=== PATIENT | female | born 1955 | race Caucasian/White ===

== ENCOUNTER 2017-01-04 07:46 | Day surgery (SDC) | payer BC ==
[~2017-01-04] VITALS: Ht 154.9 cm; Wt 75.0 kg
[2017-01-04] VITALS (7 sets, daily range): BP systolic 118–130; BP diastolic 69–92; PULSE 66–94; RESP 16–20; TEMP 97.6; O2SAT 92–97
[2017-01-04] MEDS ORDERED: LEVO.075 PO (08:12)
[2017-01-04] MEDS ORDERED: METO25TA3 PO (08:12)
[2017-01-04] MEDS ORDERED: LOVA40TA PO (08:12)
[2017-01-04] MEDS ORDERED: AMBI5TAB PO (08:12)
[2017-01-04] MEDS ORDERED: CHOL1CAP6 PO (08:12)
[2017-01-04] MEDS ORDERED: OMEP20TA PO (08:12)
[2017-01-04] MEDS ORDERED: ALPR.25 PO (08:12)
[2017-01-04] MEDS ORDERED: SODIUM CHLOR 0.9% 1000 ML IV SCH (08:15)
[2017-01-04 08:44] LABS: AUTOMATED NEUTROPHIL # 6.5 TH/MM3 (1.8-7.7); BASOPHIL # 0.1 TH/MM3 (0-0.2); BASOPHIL % 1.1 % (0.0-2.0); EOSINOPHIL # 0.1 TH/MM3 (0-0.4); EOSINOPHIL % 1.5 % (0.0-4.0); HEMATOCRIT 43.5 % (35.0-46.0); HEMO FLAGS DIFF FINAL; LYMPH % 25.1 % (9.0-44.0); LYMPHOCYTE # 2.5 TH/MM3 (1.0-4.8); MEAN CELL VOLUME 81.9 FL (80.0-100.0); MEAN CORPUSCULAR HEMOGLOBIN 26.8 PG (27.0-34.0); MEAN CORPUSCULAR HGB CONC 32.7 % (32.0-36.0); MONO % 5.8 % (0.0-8.0); NEUT % 66.5 % (16.0-70.0); PLATELET COUNT 117 TH/MM3 (150-450); RED BLOOD COUNT 5.31 MIL/MM3 (4.00-5.30); RED CELL DISTRIBUTION WIDTH 15.4 % (11.6-17.2); WHITE BLOOD COUNT 9.8 TH/MM3 (4.0-11.0)
[2017-01-04 08:48] LABS: INTERNATIONAL NORMALIZED RATIO 0.9 RATIO; PROTHROMBIN TIME - PATIENT 9.7 SEC (9.8-11.6)
[2017-01-04 08:53] LABS: APTT (PATIENT) 22.4 SEC (24.3-30.1)
[2017-01-04] MEDS ORDERED: LIDOCAINE HCL 1% 20 ML VIAL ONE (10:58)
[2017-01-04] MEDS ORDERED: MIDAZOLAM HCL 2 MG/2 ML VIAL ONE (11:12)
--- NOTE | 2017-01-04 11:58 | PD.RAD ---
Post CT Procedure Prog Note Pre Procedure Diagnosis: (1) Idiopathic thrombocytopenia purpura Post Procedure Diagnosis: (1) Idiopathic thrombocytopenia purpura Procedure Date: Jan 04, 2017 Supervising Radiologist: Sven Jeffers Estimated blood loss: minimal Anesthesia: Conscious Sedation Plan of Activity Patient to Unit: [facility] Patient Condition: Good See PACS Report for procedural detail/treatment Biopsy Imaging Guidance: CT Biopsy Procedure: Bone Marrow Site: posterior iliac bone Specimen: Core Biopsy Plan to [facility] for monitoring then discharge in 2 hours. Sven Jeffers MD Jan 04, 2017 11:58
[2017-01-04 12:20] LABS: BONE MARROW PROCESSING COMPLETE; IRON STAIN DONE; JENNER GIEMSA STAIN DONE
--- NOTE | 2017-01-04 14:05 | RADRPT ---
EXAM DATE/TIME: 01/04/2017 11:18 [place] COMPARISON: No previous studies available for comparison. INDICATIONS : Thrombocytopenia. ITP SEDATION TIME: 30 minutes BIOPSY SITE: Left MEDICATION(S): 1.) 4 mg midazolam (Versed) IV 2.) 200 mcg fentanyl (Sublimaze) IV DEVICE(S): 1.) 11 gauge Bone marrow biopsy needle MEDICAL HISTORY : Bladder cancer. SURGICAL HISTORY : None. ENCOUNTER: Initial ACUITY: 1 day PAIN SCORE: 0/10 LOCATION: Left pelvis A total of one core specimen(s) were obtained and sent to the laboratory for pathologic evaluation. PROCEDURE: 1. CT guided bone marrow biopsy. 2. Conscious sedation with continuous EKG and oximetry monitoring. 3. EKG and oximetry remained stable throughout the procedure. Prior to the procedure informed consent was obtained. Any appropriate prior imaging studies were rev iewed. Using automated exposure control and adjustment of the mA and/or kV according to patient size , radiation dose was kept as low as reasonably achievable to obtain optimal diagnostic quality images . DICOM format image data is available electronically for review and comparison. The site was prepped in a sterile fashion. Full sterile technique was used, including cap, mask, dennis rile gloves and gown and a large sterile sheet. Hand hygiene and 2% chlorhexidine and/or betadine/al cohol prep was utilized per protocol for cutaneous antisepsis. The skin and subcutaneous tissues wer e infiltrated with local anesthetic solution. With CT guidance the left posterior iliac bone was localized. Biopsy was performed using the prescrib ed needle as above. Following biopsy marrow aspiration was performed with repeat puncture. Adequate hemostasis was obtained with compression at the puncture site. Conscious sedation was performed with the prescribed dosages and duration as above in the presence of an independent trained radiology nurse to assist in the monitoring of the patient. EKG and oximetry remained stable throughout the procedure. The patient tolerated the procedure well and there were no complications. The patient was sent to Radiology Outpatient Unit in stable condition. CONCLUSION: 1. Uncomplicated CT guided bone marrow aspirate. 2. Uncomplicated CT guided bone marrow biopsy. Sven Jeffers MD on January 04, 2017 at 13:06 Board Certified Radiologist. This report was verified electronically.
== END 2017-01-04 14:10 | disposition home or self-care (01) ==
LOC: HRAD 07:46 → HRIP 07:49 → HRAD 14:10
PROVIDERS: ATTEND Internal Medicine Hematology & Oncology
DX: D69.3 Immune thrombocytopenic purpura (principal); I10 Essential (primary) hypertension; Z85.51 Personal history of malignant neoplasm of bladder
CPT/HCPCS: 38221; 77012; 85025; 85097; 85610; 85730; 88184; 88185; 88237; 88264; 88280; 88305; 88311; 88313; 99152; 99153; C1830; G0364; J2250; J3010; J7030

== ENCOUNTER 2017-03-15 11:20 | Observation (INO) | payer BC ==
[~2017-03-15] VITALS: Ht 153.7 cm; Wt 75.4 kg
[~2017-03-15 11:20] MED LIST: ALPR.25 PO; AMBI5TAB PO; BUPIVACAINE/EPINEPHRINE 0.25% PF 30 ML VIAL ONE; D31000CA3 PO; HYDR25TA5 PO; LEVO.075 PO; LOVA40TA PO; METO25TA3 PO; OMEP20TA93 PO
[2017-03-15] MEDS ORDERED: POVIDONE IODINE 5% (ANTISEPSIS KIT) 4 APPLICATIONS EACH NARE PRN (11:45)
[2017-03-15] MEDS ORDERED: METOPROLOL TARTRATE 25 MG TAB PO PRN (11:45)
[2017-03-15] MEDS ORDERED: LACTATED RINGER'S 1000 ML IV PRN (11:45)
[2017-03-15] MEDS ORDERED: SODIUM CHLORID 0.9% 500 ML IV PRN (11:45)
[2017-03-15] MEDS ORDERED: CHLORHEXIDINE GLUCONATE 2 % 1 PACK (2 CLOTHS) TOPICAL PRN (11:45)
[2017-03-15] MEDS ORDERED: VANCOMYCIN 1,000 MG/NS 250 ML IV SCH ×2 (11:45)
[2017-03-15] MEDS ORDERED: ONDANSETRON HCL 4 MG/2 ML VIAL IV ONE (12:00)
[2017-03-15] MEDS ORDERED: PROPOFOL 200 MG/20 ML AMP IV ONE (12:00)
[2017-03-15] MEDS ORDERED: LIDOCAINE HCL 1% PF 5 ML SYRINGE OTHER ONE (12:00)
[2017-03-15] MEDS ORDERED: NORMOSOL R INJ 1,000 ML IV ONE (12:00)
[2017-03-15] MEDS ORDERED: ROCURONIUM INJ 50 MG/5 ML SYRINGE IV PUSH ONE (12:00)
[2017-03-15] MEDS ORDERED: DEXAMETHASONE SOD PHOS 4 MG/ML VIAL IV ONE (12:00)
[2017-03-15 12:18] LABS: AUTOMATED NEUTROPHIL # 4.4 TH/MM3 (1.8-7.7); BASOPHIL # 0.1 TH/MM3 (0-0.2); BASOPHIL % 1.3 % (0.0-2.0); EOSINOPHIL # 0.1 TH/MM3 (0-0.4); EOSINOPHIL % 1.5 % (0.0-4.0); HEMATOCRIT 42.1 % (35.0-46.0); HEMOGLOBIN 13.8 GM/DL (11.6-15.3); LYMPH % 33.4 % (9.0-44.0); LYMPHOCYTE # 2.7 TH/MM3 (1.0-4.8); MEAN CELL VOLUME 81.1 FL (80.0-100.0); MEAN CORPUSCULAR HEMOGLOBIN 26.6 PG (27.0-34.0); MEAN CORPUSCULAR HGB CONC 32.9 % (32.0-36.0); MEAN PLATELET VOLUME 12.8 FL (7.0-11.0); MONO % 9.3 % (0.0-8.0); MONOCYTE # 0.7 TH/MM3 (0-0.9); NEUT % 54.5 % (16.0-70.0); RED CELL DISTRIBUTION WIDTH 15.1 % (11.6-17.2)
[2017-03-15 13:10] LABS: OVALOCYTES 1+ (NORMAL)
[2017-03-15] MEDS ORDERED: ACETAMINOPHEN 1000 MG/100 ML 100 ML IV ONE (13:40)
[2017-03-15] MEDS ORDERED: SUGAMMADEX SODIUM 200 MG/2 ML VIAL IV PUSH ONE (13:40)
[2017-03-15] MEDS ORDERED: DO NOT ADM ANY ANTICOAGULANT DRUGS PRN (14:17)
[2017-03-15] MEDS ORDERED: MORPHINE SULFATE 4 MG/ML INJ ONE (14:25)
--- NOTE | 2017-03-15 14:29 | PD.OP ---
Operative Report Date of Surgery: Mar 15, 2017 Preoperative Diagnosis: ITP Postoperative Diagnosis: same Procedure: laparoscopic splenectomy Anesthesia: general Surgeon: Dalton Velasquez Paid Search Marketing Strategist(s): Ran Kaminski Operation and Findings: spleen to pathology. EBL 250 ml. Dalton Velasquez MD Mar 15, 2017 14:29
[2017-03-15] MEDS ORDERED: *morphine SULFATE 4 MG/ML PERIprocedure ONLY ONE (14:30)
[2017-03-15] MEDS ORDERED: ACETAMINOPHEN/HYDROcodone 325 MG/5 MG TAB PO PRN (14:30)
[2017-03-15] MEDS ORDERED: Post-op Orders (for Pharmacy) XX ONE (14:30)
[2017-03-15] MEDS ORDERED: MORPHINE SULFATE 2 MG/ML INJ IV PUSH PRN (14:45)
[2017-03-15] MEDS ORDERED: *morphine SULFATE 10 MG/ML PERIprocedure ONLY ONE (15:00)
[2017-03-15] MEDS: LACTATED RINGER'S 1000 ML INJ 1,000 ML IV SCH ×2 (15:06→23:24)
[2017-03-15 15:54] LABS: AUTOMATED NEUTROPHIL # 13.9 TH/MM3 (1.8-7.7); BASOPHIL # 0.1 TH/MM3 (0-0.2); BASOPHIL % 0.6 % (0.0-2.0); EOSINOPHIL # 0.1 TH/MM3 (0-0.4); EOSINOPHIL % 0.6 % (0.0-4.0); HEMATOCRIT 37.2 % (35.0-46.0); HEMOGLOBIN 11.8 GM/DL (11.6-15.3); LYMPH % 12.5 % (9.0-44.0); LYMPHOCYTE # 2.1 TH/MM3 (1.0-4.8); MEAN CELL VOLUME 82.1 FL (80.0-100.0); MEAN CORPUSCULAR HEMOGLOBIN 26.1 PG (27.0-34.0); MEAN CORPUSCULAR HGB CONC 31.8 % (32.0-36.0); MEAN PLATELET VOLUME 14.2 FL (7.0-11.0); MONO % 3.2 % (0.0-8.0); MONOCYTE # 0.5 TH/MM3 (0-0.9); NEUT % 83.1 % (16.0-70.0); PLATELET COUNT 28 TH/MM3 (150-450); RED BLOOD COUNT 4.52 MIL/MM3 (4.00-5.30); RED CELL DISTRIBUTION WIDTH 14.7 % (11.6-17.2); WHITE BLOOD COUNT 16.7 TH/MM3 (4.0-11.0)
[2017-03-15 16:00] VITALS: BP 141/77; PULSE 82; RESP 17; TEMP 97.9; O2SAT 96
[2017-03-15 19:08] VITALS: O2SAT 96
[2017-03-15 20:00] VITALS: BP 88/56; PULSE 87; RESP 20; TEMP 95.7; O2SAT 98
[2017-03-15] MEDS: ACETAMINOPHEN/HYDROcodone 325 MG/5 MG TAB PO PRN (23:24)
[2017-03-16] VITALS: BP 106/68; PULSE 88; RESP 20; TEMP 95.4; O2SAT 99
--- NOTE | 2017-03-16 06:59 | MP ---
cc: NATALIA CLARK M.D. DATE OF SURGERY 03/15/2017 PREOPERATIVE DIAGNOSIS Immune thrombocytopenic purpura. POSTOPERATIVE DIAGNOSIS Immune thrombocytopenic purpura. PROCEDURE Laparoscopic splenectomy SURGEON Dr. Natalia Clark ELECT[employer]IC [employer]OR REPAIRER SURGEON Dr. Ran Kaminski ANESTHESIA General INDICATIONS This is a pleasant 61-year-old patient of Dr. Louis Pantoja who has been treated for ITP with multiple medications. She had some initial good response, but they did no response did not last long. She was offered long-term medical therapy, but declined due to potential side effects. She was desirous of splenectomy understanding about an 80% chance of long lasting improvement in her platelet count with laparoscopic splenectomy. INTRAOPERATIVE FINDINGS Normal size spleen removed and sent to pathology. No evidence of accessory splenic tissue. ESTIMATED BLOOD LOSS 250 mL DESCRIPTION OF PROCEDURE IN DETAIL The patient identified as Sofi Merino, taken to the operating room, placed in the supine position. Sequential compression devices were placed on bilateral lower extremities. Following induction of adequate general endotracheal anesthesia, the patient's abdomen was prepped and draped in the usual sterile fashion with Betadine. A time-out procedure was performed. Following completion of the time-out procedure to everyone's satisfaction within the room, local anesthetic was placed at each incision site. An incision about 2-4 cm above the umbilicus above the abdominal crease was carried out with a scalpel and dissection continued posteriorly to the level of the midline fascia. The fascia was incised with a scalpel and entry into the peritoneal cavity was facilitated with the surgeon's finger. The applied medical balloon Watt trocar was placed in the peritoneal cavity, its balloon inflated to CO2 insufflation to a level of 15 mmHg ensued. The patient had a folded blanket beneath the left upper quadrant to facilitate appropriate positioning, but she was also placed in reverse Trendelenburg and turned slightly to the right. Two upper abdominal midline 5 mm trocars were placed in the peritoneal cavity under direct laparoscopic view after incision in the skin with a scalpel. A left upper quadrant 10/12 trocar was placed in the peritoneal cavity under direct laparoscopic view after incision in the skin with a scalpel. The spleen was immediately identified. Short gastric vessels were taken down with a harmonic scalpel to the superior pole of the spleen. The splenocolic attachments were taken down with a harmonic scalpel. The splenic attachments to the diaphragm posteriorly and superiorly were then taken down. As we dissected up from the inferior pole vessels using the harmonic scalpel, a small amount of bleeding occurred which was controlled initially with a grasper and then with the laparoscopic vascular stapling device. A small amount of ooze was further controlled with a 0-PDS Endoloop. The ruzi flex liver retractor was then placed around the spleen retracting it anteriorly which allowed further isolation of the splenic hilum using the harmonic scalpel. The splenic hilum was then divided with the laparoscopic vascular stapling device. There was a small amount of ooze at the center of the staple line which was controlled with a 0 Vicryl Endoloop. The right upper quadrant was then irrigated copiously with saline. All bloody drainage was suctioned out. A detailed examination demonstrated no further evidence of ooze or bleed at the staple lines or in the left upper quadrant where the avascular attachments had been divided. Greater curvature of the stomach was evaluated. No evidence of bleeding from the short gastric vessels either. The left upper quadrant trocar incision site was closed with laparoscopic passage of a 0 Vicryl suture and an additional 0 Vicryl in the anterior fascia. The remaining trocars were removed under direct visualization. There was no loss of bleeding from trocar sites. The abdomen was actively desufflated through the supraumbilical port. The supraumbilical fascial incision closed with multiple interrupted 0 Vicryl sutures. Port site skin incisions were infiltrated with remaining local anesthetic and incisions closed with interrupted 4-0 Monocryl subcuticular sutures. Dressings were applied with Mastisol and half inch brown Steri-Strips. The patient tolerated the procedure without apparent complication. Sponge, needle and instrument counts were correct at the end of the case. MD JESUS Rios/HERBERT /2:11 PM /6:26 AM
[2017-03-16 08:00] VITALS: BP 111/60; PULSE 103; RESP 16; TEMP 97.7; O2SAT 93
[2017-03-16] MEDS: ACETAMINOPHEN/HYDROcodone 325 MG/5 MG TAB PO PRN ×2 (10:22→14:33)
[2017-03-16] MEDS ORDERED: ALPRAZolam 0.25 MG TAB PO PRN (11:45)
[2017-03-16] MEDS ORDERED: ZOLPIDEM TARTRATE 5 MG TAB PO PRN (11:45)
[2017-03-16 12:00] VITALS: BP 113/61; PULSE 106; RESP 16; TEMP 97.9; O2SAT 93
[2017-03-16] MEDS ORDERED: METOPROLOL TARTRATE 25 MG TAB PO SCH (13:00)
[2017-03-16] MEDS ORDERED: LEVOTHYROXINE SODIUM 75 MCG TAB PO SCH (13:00)
[2017-03-16] MEDS ORDERED: PRAVASTATIN SOD 40 MG TAB PO SCH (13:00)
[2017-03-16] MEDS ORDERED: HYDROCHLOROTHIAZIDE 25 MG TAB PO SCH (13:00)
[2017-03-16] MEDS ORDERED: PANTOPRAZOLE SOD 40 MG DELAYED RELEASE TAB PO SCH (13:00)
[2017-03-16] MEDS ORDERED: CHOLECALCIFEROL (VIT D3) 1000 UNIT TAB PO SCH (13:00)
[2017-03-16] MEDS ORDERED: HYDR-3516 PO (14:19)
--- NOTE | 2017-03-16 15:33 | HHI.DS ---
Discharge Summary Admission Date Mar 15, 2017 at 14:34 Discharge Date: Mar 16, 2017 Admitting Diagnosis Brief History 61 year old female POD1 laparoscopic splenectomy for ITP. CBC/BMP: 03/15/17 1441 Significant Findings Laboratory Tests Test 03/15/17 11:55 03/15/17 14:41 Mean Corpuscular Hemoglobin 26.6 PG (27.0-34.0) 26.1 PG (27.0-34.0) Mean Platelet Volume 12.8 FL (7.0-11.0) 14.2 FL (7.0-11.0) Monocytes (%) (Auto) 9.3 % (0.0-8.0) Platelet Estimate LOW (NORMAL) LOW (NORMAL) Platelet Morphology Comment ENLARGED (NORMAL) Ovalocytes 1+ (NORMAL) White Blood Count 16.7 TH/MM3 (4.0-11.0) Mean Corpuscular Hemoglobin Concent 31.8 % (32.0-36.0) Platelet Count 28 TH/MM3 (150-450) Neutrophils (%) (Auto) 83.1 % (16.0-70.0) Neutrophils # (Auto) 13.9 TH/MM3 (1.8-7.7) PE at Discharge Alert and awake Cardio: RRR Resp: CTAB Abd; soft; minimal post op tenderness; lap sites c/d/i Hospital Course This is a 61 year old female POD1 laparoscopic splenectomy for ITP. The patient's pain was controlled using oral pain medications. The patient was able to tolerate a regular diet. The patient will follow-up in the office on March [address] Velasquez. Prior to this appointment, the patient will obtain blood work to check her complete blood count. Pt Condition on Discharge: Good Discharge Disposition: Discharge Home Discharge Instructions DIET: Follow Instructions for: As Tolerated, No Restrictions Activities you can perform: See Additionl Instruction Other Activity Instructions: Okay to shower; pat incisions dry No baths Avoid heavy pushing pulling or lifting Alayna Balderrama Mar 16, 2017 15:33
[2017-03-16 16:00] VITALS: BP 116/67; PULSE 109; RESP 16; TEMP 98.5; O2SAT 95
== END 2017-03-16 17:52 | disposition home or self-care (01) ==
LOC: HSDC 11:20 → HSDI 14:34 → N07A 15:32
PROVIDERS: ADMIT Surgery Trauma Surgery; ATTEND Surgery Trauma Surgery
DX: D69.3 Immune thrombocytopenic purpura (principal); Z01.818 Encounter for other preprocedural examination
CPT/HCPCS: 00790; 38120; 85025; 86850; 86900; 86901; 86920; 88305; 96361; 96374; G0378; J0131; J1100; J2270; J2405; J3370; J7050; J7120